=== PATIENT | male | born 1945 | race Caucasian/White ===

== ENCOUNTER 2018-10-23 17:54 | Observation (INO) ==
[2018-10-23] MEDS ORDERED: Sod Chloride 0.9% Inj 1,000 ML IV.SIG ONE (18:41)
[2018-10-23] MEDS ORDERED: Pantoprazole Inj 40 MG Vial IV.PUSH ONE (18:41)
[2018-10-23 18:42] LABS: Baso # (Auto) 0.1 th/mm3 (0.0-0.2); Baso % (Auto) 0.5 % (0.0-2.0); Eos # (Auto) 0.8 th/mm3 (0.0-0.4); Hematocrit 45.5 % (39.0-51.0); Hemoglobin 14.9 gm/dL (13.0-17.0); Lymph # (Auto) 2.9 th/mm3 (1.0-4.8); Lymph % (Auto) 21.2 % (9.0-44.0); Mean Corpuscular HGB Conc 32.8 % (32.0-36.0); Mean Corpuscular Hemoglobin 32.3 pg (27.0-34.0); Mean Corpuscular Volume 98.4 fL (80.0-100.0); Mean Platelet Volume 8.5 fL (7.0-11.0); Mono # (Auto) 1.2 th/mm3 (0.0-0.9); Mono % (Auto) 8.7 % (0.0-8.0); Neut # (Auto) 8.5 th/mm3 (1.8-7.7); Neut % (Auto) 63.6 % (16.0-70.0); Platelet Count 176 th/mm3 (150-450); Red Blood Count 4.63 mil/mm3 (4.50-5.90); White Blood Count 13.5 th/mm3 (4.0-11.0)
[2018-10-23 18:53] LABS: Chloride 102 meq/L (98-107); Potassium 3.6 meq/L (3.5-5.1); Sodium 138 meq/L (136-145)
--- NOTE | 2018-10-23 18:59 | ED ---
HPI General Chief complaint: Abdominal Pain Stated complaint: N/V/Mid Lower Abd Pain x3Days Time Seen by Provider: 10/23/18 18:15 History of Present Illness HPI narrative: 73 male here for evaluation of abdominal pain and coffee-ground emesis. Patient has no history of any medical problems, last colonoscopy was was a year ago and was normal. Over the last 10 days has been experiencing abdominal pain that he thought it was just a stomach virus, pain seems to be getting worse recently, in the right lower quadrant, 5, this morning he had one episode of coffee-ground emesis, he is also complaining of lightheadedness and fatigue since the vomiting. He has no diarrhea, last bowel movement was yesterday and was normal. No previous surgeries. Related Data Home Medications Medication Instructions Recorded Confirmed naproxen sodium [Aleve] 220 mg PO BID PRN 10/23/18 10/23/18 Allergies Allergy/AdvReac Type Severity Reaction Status Date / Time penicillin V Allergy Swelling Verified 10/23/18 18:01 of Lip/Tongue/Throat Review of Systems ROS: all other systems reviewed are negative [facility] Medical History Medical History H/O corticosteroid therapy (Acute) Right rotator cuff tear (Acute) Surgical History Surgical History History of ankle surgery (Acute) Social History Social History Substance History: No History of Abuse Second Hand Smoke Exposure: No Smoking Status: Never smoker How Often Do You Have a Drink Containing Alcohol: 2 to 4 times a month Recent Travel in [facility] within the Last 8 Weeks: No Recent Out of Country Travel within the Last 8 Weeks: No Immunization History Tetanus Immunization: Unsure Exam Narrative Exam Narrative: GENERAL: Alert oriented x3 no acute distress. SKIN: Focused skin assessment warm/dry. HEAD: Atraumatic. Normocephalic. EYES: Pupils equal and round. No scleral icterus. No injection or drainage. ENT: No nasal bleeding or discharge. Mucous membranes pink and moist. NECK: Trachea midline. No JVD. CARDIOVASCULAR: Regular rate and rhythm. No murmur appreciated. RESPIRATORY: No accessory muscle use. Clear to auscultation. Breath sounds equal bilaterally. GASTROINTESTINAL: Mild right lower quadrant tenderness, abdomen soft, non-tender , nondistended. Hepatic and splenic margins not palpable. MUSCULOSKELETAL: No obvious deformities. No clubbing. No cyanosis. No edema. NEUROLOGICAL: Awake and alert. No obvious cranial nerve deficits. Motor grossly within normal limits. Normal speech. PSYCHIATRIC: Appropriate mood and affect; insight and judgment normal. Procedures Hemaprompt Stool Procedural Steps Taken: specimen placed in appropriate test area Hemaprompt Stool Result: positive Course Initial Documented Vital Signs Temperature 98.6 F 10/23/18 17:57 Pulse Rate 105 H 10/23/18 17:57 Respiratory Rate 16 10/23/18 17:57 Blood Pressure 183/82 H 10/23/18 17:57 Pulse Oximetry 96 10/23/18 17:57 Last Documented Vital Signs Temperature 97.8 F 10/25/18 00:29 Pulse Rate 83 10/25/18 00:29 Respiratory Rate 18 10/25/18 00:29 Blood Pressure 115/53 L 10/25/18 00:29 Pulse Oximetry 94 L 10/25/18 00:29 Sign Out Sign Out Data: Patient Sign Out occurred on 10/23/18 at 19:43. Patient's care was discussed, and care was transferred from Ej Mccarthy MD to Arti Mosley MD. Sign Out Comment: 73 male here for evaluation of coffee-ground emesis this morning. He has been having abdominal pain on and off for the last 10 days that got worse recently. He has right lower quadrant tenderness on exam, he is tachycardic, Hemoccult positive, pending EKG and labs. Will sign out to Dr. Mosley next shift. Last updated by Ej Mccarthy MD at 10/23/18 19:07 Post-Handoff Eval: Accepted in transfer of care for follow-up of pending labs and admission for GI bleed Medical Decision Making MDM Narrative Medical decision making narrative: 73 male here for evaluation of coffee-ground emesis this morning. He has been having abdominal pain on and off for the last 10 days that got worse recently. He has right lower quadrant tenderness on exam , he is tachycardic, Hemoccult positive, pending EKG and labs. Will sign out to Dr. Mosley next shift. Accepted in transfer of care for follow-up of pending labs CT diagnostics for evaluation of upper GI bleed. Patient relates that he does drink 2 alcoholic beverages daily and takes Aleve daily as well as 81 mg aspirin daily. Patient states has not noticed any black or tarry stools last bowel movement was approximately a day ago. Patient did have episode of coffee-ground emesis for the first time today. Patient does complain of right lower quadrant abdominal pain and periumbilical pain. Patient denies any chest pain or shortness of breath. Patient has had some intermittent dizziness. CBC with automated differential is noted to have mild leukocytosis with normal range hemoglobin hematocrit and platelet count chemistries remarkable for elevated serum calcium otherwise values grossly normal range. Patient will be sent for CT abdomen pelvis with IV contrast. Patient has been administered maintenance IV fluids kept n.p.o. received Protonix 40 mg bolus Zofran and morphine sulfate 2 mg x1 dose for complaint of 7/10 abdominal pain. Rectal exam previously performed by Dr. Smith was positive for blood. Patient is aware of plan for at least observation admission. Discussed with Dr Beach for admission for GI bleed with h/o nsaid use alcohol use and CT with gastric mass Medical Screen Exam Complete: Yes Emergency Medical Condition: Yes Differential Diagnosis Differential Diagnosis: GI bleed, gastritis peptic ulcer disease also to consider right lower quadrant abdominal pain colitis diverticulitis appendicitis dehydration pancreatitis renal insufficiency coagulopathy [facility] Medical Records no prior visits Lab Data Lab results reviewed: Yes I reviewed the patient's lab results. Result diagrams: 10/24/18 18:09 10/24/18 06:05 Lab Results 10/23/18 10/23/18 10/23/18 Range/Units 18:25 18:25 18:25 CBC w Diff Auto diff final WBC 13.5 H (4.0-11.0) th/mm3 RBC 4.63 (4.50-5.90) mil/mm3 Hgb 14.9 (13.0-17.0) gm/dL Hct 45.5 (39.0-51.0) % MCV 98.4 (80.0-100.0) fL MCH 32.3 (27.0-34.0) pg MCHC 32.8 (32.0-36.0) % RDW 15.0 (11.6-17.2) % Plt Count 176 (150-450) th/mm3 MPV 8.5 (7.0-11.0) fL Neut % (Auto) 63.6 (16.0-70.0) % Lymph % (Auto) 21.2 (9.0-44.0) % Stevens % (Auto) 8.7 H (0.0-8.0) % Eos % (Auto) 6.0 H (0.0-4.0) % Baso % (Auto) 0.5 (0.0-2.0) % Neut # (Auto) 8.5 H (1.8-7.7) th/mm3 Lymph # (Auto) 2.9 (1.0-4.8) th/mm3 Stevens # (Auto) 1.2 H (0.0-0.9) th/mm3 Eos # (Auto) 0.8 H (0.0-0.4) th/mm3 Baso # (Auto) 0.1 (0.0-0.2) th/mm3 WBC Differential . Differential Comment . PT 11.8 H (9.8-11.6) sec INR 1.2 Ratio APTT 25.7 (23.4-31.7) sec Sodium 138 (136-145) meq/L Potassium 3.6 (3.5-5.1) meq/L Chloride 102 (98-107) meq/L Carbon Dioxide 30.3 (21.0-32.0) meq/L Anion Gap 6 (5-15) meq/L BUN 15 (7-18) mg/dL Creatinine 0.76 (0.60-1.30) mg/dL Estimated GFR Greater than 89 (>89) mL/min POC Glucose (68-110) mg/dl Random Glucose 95 (74-106) mg/dL Calcium 10.5 H (8.5-10.1) mg/dL Magnesium 1.7 (1.5-2.5) mg/dL Total Bilirubin 1.0 (0.2-1.0) mg/dL AST 37 (15-37) U/L ALT 23 (12-78) U/L Alkaline Phosphatase 95 (45-117) U/L Total Protein 6.6 (6.4-8.2) g/dL Albumin 2.9 L (3.4-5.0) g/dL Lipase 99 (73-393) U/L Urine Color (Yellw/Straw) Urine Clarity (Clear) Urine pH (5.0-8.5) Ur Specific [place] (1.002-1.035) Urine Protein (Neg-Trace) mg/dL Urine Glucose (UA) (Negative) mg/dL Urine Ketones (Negative) mg/dL Urine Occult Blood (Negative) Urine Nitrate (Negative) Urine Bilirubin (Negative) Urine Urobilinogen (Less than 2) mg/dL Ur Leukocyte Esterase (Negative) Urine WBC (0-5) /hpf Amorphous Sediment (None) /hpf Micro UA Comment Ur Microscopic Review Urine Culture Comments Blood Type Blood Type Recheck Antibody Screen 10/23/18 10/23/18 10/24/18 Range/Units 18:50 21:55 00:05 CBC w Diff WBC (4.0-11.0) th/mm3 RBC (4.50-5.90) mil/mm3 Hgb 14.6 (13.0-17.0) gm/dL Hct 43.1 (39.0-51.0) % MCV (80.0-100.0) fL MCH (27.0-34.0) pg MCHC (32.0-36.0) % RDW (11.6-17.2) % Plt Count (150-450) th/mm3 MPV (7.0-11.0) fL Neut % (Auto) (16.0-70.0) % Lymph % (Auto) (9.0-44.0) % Stevens % (Auto) (0.0-8.0) % Eos % (Auto) (0.0-4.0) % Baso % (Auto) (0.0-2.0) % Neut # (Auto) (1.8-7.7) th/mm3 Lymph # (Auto) (1.0-4.8) th/mm3 Stevens # (Auto) (0.0-0.9) th/mm3 Eos # (Auto) (0.0-0.4) th/mm3 Baso # (Auto) (0.0-0.2) th/mm3 WBC Differential Differential Comment PT (9.8-11.6) sec INR Ratio APTT (23.4-31.7) sec Sodium (136-145) meq/L Potassium (3.5-5.1) meq/L Chloride (98-107) meq/L Carbon Dioxide (21.0-32.0) meq/L Anion Gap (5-15) meq/L BUN (7-18) mg/dL Creatinine (0.60-1.30) mg/dL Estimated GFR (>89) mL/min POC Glucose (68-110) mg/dl Random Glucose (74-106) mg/dL Calcium (8.5-10.1) mg/dL Magnesium (1.5-2.5) mg/dL Total Bilirubin (0.2-1.0) mg/dL AST (15-37) U/L ALT (12-78) U/L Alkaline Phosphatase (45-117) U/L Total Protein (6.4-8.2) g/dL Albumin (3.4-5.0) g/dL Lipase (73-393) U/L Urine Color Yellow (Yellw/Straw) Urine Clarity Slightly cloudy (Clear) Urine pH 8.0 (5.0-8.5) Ur Specific [place] 1.010 (1.002-1.035) Urine Protein Negative (Neg-Trace) mg/dL Urine Glucose (UA) Negative (Negative) mg/dL Urine Ketones Negative (Negative) mg/dL Urine Occult Blood Negative (Negative) Urine Nitrate Negative (Negative) Urine Bilirubin Negative (Negative) Urine Urobilinogen 0.2 (Less than 2) mg/dL Ur Leukocyte Esterase Negative (Negative) Urine WBC 0-5 (0-5) /hpf Amorphous Sediment Moderate H (None) /hpf Micro UA Comment Culture not ind Ur Microscopic Review Microscopic reviewed Urine Culture Comments Culture not ind Blood Type A Positive Blood Type Recheck Required Antibody Screen Negative 10/24/18 10/24/18 10/24/18 Range/Units 06:05 06:05 13:14 CBC w Diff Auto diff final WBC 11.1 H (4.0-11.0) th/mm3 RBC 3.97 L (4.50-5.90) mil/mm3 Hgb 13.0 13.7 (13.0-17.0) gm/dL Hct 39.3 41.0 (39.0-51.0) % MCV 99.0 (80.0-100.0) fL MCH 32.8 (27.0-34.0) pg MCHC 33.1 (32.0-36.0) % RDW 14.9 (11.6-17.2) % Plt Count 139 L (150-450) th/mm3 MPV 8.2 (7.0-11.0) fL Neut % (Auto) 61.4 (16.0-70.0) % Lymph % (Auto) 21.3 (9.0-44.0) % Stevens % (Auto) 8.6 H (0.0-8.0) % Eos % (Auto) 8.2 H (0.0-4.0) % Baso % (Auto) 0.5 (0.0-2.0) % Neut # (Auto) 6.7 (1.8-7.7) th/mm3 Lymph # (Auto) 2.4 (1.0-4.8) th/mm3 Stevens # (Auto) 1.0 H (0.0-0.9) th/mm3 Eos # (Auto) 0.9 H (0.0-0.4) th/mm3 Baso # (Auto) 0.1 (0.0-0.2) th/mm3 WBC Differential . Differential Comment . PT (9.8-11.6) sec INR Ratio APTT (23.4-31.7) sec Sodium 142 (136-145) meq/L Potassium 3.9 (3.5-5.1) meq/L Chloride 107 (98-107) meq/L Carbon Dioxide 29.7 (21.0-32.0) meq/L Anion Gap 5 (5-15) meq/L BUN 16 (7-18) mg/dL Creatinine 0.74 (0.60-1.30) mg/dL Estimated GFR Greater than 89 (>89) mL/min POC Glucose (68-110) mg/dl Random Glucose 89 (74-106) mg/dL Calcium 9.2 D (8.5-10.1) mg/dL Magnesium (1.5-2.5) mg/dL Total Bilirubin 0.9 (0.2-1.0) mg/dL AST 26 (15-37) U/L ALT 18 (12-78) U/L Alkaline Phosphatase 78 (45-117) U/L Total Protein 5.6 L D (6.4-8.2) g/dL Albumin 2.6 L (3.4-5.0) g/dL Lipase (73-393) U/L Urine Color (Yellw/Straw) Urine Clarity (Clear) Urine pH (5.0-8.5) Ur Specific [place] (1.002-1.035) Urine Protein (Neg-Trace) mg/dL Urine Glucose (UA) (Negative) mg/dL Urine Ketones (Negative) mg/dL Urine Occult Blood (Negative) Urine Nitrate (Negative) Urine Bilirubin (Negative) Urine Urobilinogen (Less than 2) mg/dL Ur Leukocyte Esterase (Negative) Urine WBC (0-5) /hpf Amorphous Sediment (None) /hpf Micro UA Comment Ur Microscopic Review Urine Culture Comments Blood Type Blood Type Recheck Antibody Screen 10/24/18 10/24/18 Range/Units 18:09 20:04 CBC w Diff WBC (4.0-11.0) th/mm3 RBC (4.50-5.90) mil/mm3 Hgb 13.6 (13.0-17.0) gm/dL Hct 40.6 (39.0-51.0) % MCV (80.0-100.0) fL MCH (27.0-34.0) pg MCHC (32.0-36.0) % RDW (11.6-17.2) % Plt Count (150-450) th/mm3 MPV (7.0-11.0) fL Neut % (Auto) (16.0-70.0) % Lymph % (Auto) (9.0-44.0) % Stevens % (Auto) (0.0-8.0) % Eos % (Auto) (0.0-4.0) % Baso % (Auto) (0.0-2.0) % Neut # (Auto) (1.8-7.7) th/mm3 Lymph # (Auto) (1.0-4.8) th/mm3 Stevens # (Auto) (0.0-0.9) th/mm3 Eos # (Auto) (0.0-0.4) th/mm3 Baso # (Auto) (0.0-0.2) th/mm3 WBC Differential Differential Comment PT (9.8-11.6) sec INR Ratio APTT (23.4-31.7) sec Sodium (136-145) meq/L Potassium (3.5-5.1) meq/L Chloride (98-107) meq/L Carbon Dioxide (21.0-32.0) meq/L Anion Gap (5-15) meq/L BUN (7-18) mg/dL Creatinine (0.60-1.30) mg/dL Estimated GFR (>89) mL/min POC Glucose 144 H (68-110) mg/dl Random Glucose (74-106) mg/dL Calcium (8.5-10.1) mg/dL Magnesium (1.5-2.5) mg/dL Total Bilirubin (0.2-1.0) mg/dL AST (15-37) U/L ALT (12-78) U/L Alkaline Phosphatase (45-117) U/L Total Protein (6.4-8.2) g/dL Albumin (3.4-5.0) g/dL Lipase (73-393) U/L Urine Color (Yellw/Straw) Urine Clarity (Clear) Urine pH (5.0-8.5) Ur Specific [place] (1.002-1.035) Urine Protein (Neg-Trace) mg/dL Urine Glucose (UA) (Negative) mg/dL Urine Ketones (Negative) mg/dL Urine Occult Blood (Negative) Urine Nitrate (Negative) Urine Bilirubin (Negative) Urine Urobilinogen (Less than 2) mg/dL Ur Leukocyte Esterase (Negative) Urine WBC (0-5) /hpf Amorphous Sediment (None) /hpf Micro UA Comment Ur Microscopic Review Urine Culture Comments Blood Type Blood Type Recheck Antibody Screen Imaging Data Radiologist's impression: Chest X-Ray 10/23/18 18:41 CONCLUSION: No acute cardiopulmonary disease. Abdomen/Pelvis CT 10/23/18 19:46 CONCLUSION: 1. Questionable mass arising from the wall of the gastric fundus. Upper endoscopy would be helpful for confirmation of this questionable mass and possible biopsy. 2. Uncomplicated colonic diverticulosis. 3. Mild diffuse fatty infiltration liver. 4. Cholelithiasis. 5. 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 Minimally prominent prostate with central calcification. 7. Degenerative changes and mild scoliosis of the thoracolumbar spine. ECG Data EKG Prior to Arrival: No Attestation: I personally reviewed and interpreted this ECG as follows: (EKG: Sinus rhythm with rate of [address] elevation or injury pattern positive PACs left anterior fascicular block) Discharge Plan Discharge Disposition Patient Disposition: ED Admit(ED Internal Use Only) Discharge Condition Condition: Stable Discharge Order Discharge Orders: ED Use Only Admit Order (Routine); Ordered 10/23/18 Ordered By: Arti Mosley Discharge Details Diagnosis: Gastric mass, Gastritis, UGIB (upper gastrointestinal bleed) Physicians Team ED Provider: Arti Mosley Primary Care Provider: Primary Care Liliane Gutierrez Attending Provider: Michelle Sam Other Providers: Amador Falk Status ED Status: Left Department Discharge Information Discharge Date/Time: 10/24/18 11:59
--- NOTE | 2018-10-23 19:28 | XR ---
EXAM DATE: 10/23/2018 7:23 PM EST AGE/SEX: 73 years / Male INDICATIONS: Nausea and vomiting. CLINICAL DATA: This is the patient's initial encounter. Patient reports that signs and symptoms have been present for 2 days and indicates a pain score of 3/10. MEDICAL/SURGICAL HISTORY: None. . COMPARISON: No prior exams available for comparison. FINDINGS: A single AP view of the chest demonstrates the lungs to be symmetrically aerated without evidence of mass, infiltrate or effusion. The cardiomediastinal contours are unremarkable. Osseous structures a re intact. CONCLUSION: No acute cardiopulmonary disease. Electronically signed by: Stuart Bundy MD Board Certified Radiologist 10/23/2018 7:26 PM EST
[2018-10-23 19:30] LABS: Bilirubin,Urine Negative (Negative); Clarity,Urine Slightly Cloudy (Clear); Color,Urine Yellow (Yellw/Straw); Glucose,Urine (UA) Negative (Negative); Leukocyte Esterase,Urine Negative (Negative); Nitrite,Urine Negative (Negative); Urobilinogen,Urine 0.2 mg/dL (Less than 2)
[2018-10-23 19:31] LABS: Alanine Aminotransferase 23 U/L (12-78); Albumin 2.9 g/dL (3.4-5.0); Alkaline Phosphatase 95 U/L (45-117); Anion Gap 6 meq/L (5-15); Aspartate Aminotransferase 37 U/L (15-37); Blood Urea Nitrogen 15 mg/dL (7-18); Calcium 10.5 mg/dL (8.5-10.1); Carbon Dioxide 30.3 meq/L (21.0-32.0); Glomerular Filtration Rate Greater Than 89 mL/min (>89); Glucose,Random 95 mg/dL (74-106); Lipase 99 U/L (73-393); Magnesium 1.7 mg/dL (1.5-2.5); Total Protein 6.6 g/dL (6.4-8.2)
[2018-10-23 19:44] LABS: Amorphous Sediment,Urine Moderate /hpf; WBC,Urine 0-5 /hpf (0-5)
[2018-10-23] MEDS ORDERED: Morphine Inj 4 MG/ML Vial IV.PUSH ONE (19:46)
[2018-10-23 20:09] LABS: Activated Partial Thrombo Time 25.7 sec (23.4-31.7); INR 1.2 Ratio; Prothrombin Time 11.8 sec (9.8-11.6)
--- NOTE | 2018-10-23 21:06 | CT ---
EXAM DATE: 10/23/2018 8:57 PM EST AGE/SEX: 73 years / Male INDICATIONS: Mid to low abdominal pain, and coffee ground emesis. CLINICAL DATA: This is the patient's initial encounter. Patient reports that signs and symptoms have been present for 3 days and indicates a pain score of 5/10. MEDICAL/SURGICAL HISTORY: None. . Ankle surgery. ORAL CONTRAST: No oral contrast ingested. RADIATION DOSE: 22.08 CTDI (mGy) COMPARISON: No prior exams available for comparison. TECHNIQUE: Multiple contiguous axial images were obtained through the abdomen and pelvis following b olus infusion of 95 ml Omnipaque 350 (iohexol) nonionic water-soluble contrast as a single exam dos e. No oral contrast ingested. Using automated exposure control and adjustment of the mA and/or kV ac cording to patient size, radiation dose was kept as low as reasonably achievable to obtain optimal di agnostic quality images. DICOM format image data is available electronically for review and comparis on. FINDINGS: Lower Lungs: The visualized lower lungs are clear. Liver: Scattered punctate calcifications are noted within the liver parenchyma consistent with granul omatous disease. Mild diffuse fatty infiltration is noted. No focal hepatic mass is noted. There is n o dilation of the biliary tree. Tiny calcified gallstones are noted within the gallbladder. Spleen: Scattered punctate calcification are noted consistent with granulomatous disease. Pancreas: Unremarkable without mass or calcification. Kidneys: Normal in size and shape. No evidence of mass or hydronephrosis. Adrenal Glands: Unremarkable. Aorta: The aorta and proximal iliac vessels are grossly unremarkable without aneurysmal dilation. Bowel/Mesentery: There is questionable mass arising from the wall of the gastric fundus. Upper endos copy would be helpful for confirmation of this questionable mass and possible biopsy. Uncomplicated c olonic diverticulosis is noted. No acute diverticulitis is noted. Abdominal Wall: Intact. Retroperitoneum: No evidence of adenopathy in the retrocrural, para-aortic, or deep pelvic regions. Bladder: Contours are smooth. Reproductive Organs: The prostate gland is minimally prominent and contains central calcification. Inguinal: The inguinal region is unremarkable without evidence of adenopathy. Bony Structures: Degenerative changes and mild scoliosis of the thoracolumbar spine are noted. CONCLUSION: 1. Questionable mass arising from the wall of the gastric fundus. Upper endoscopy would be helpful f or confirmation of this questionable mass and possible biopsy. 2. Uncomplicated colonic diverticulosis. 3. Mild diffuse fatty infiltration liver. 4. Cholelithiasis. 5. 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 Minimally prominent prostate with central calcification. 7. Degenerative changes and mild scoliosis of the thoracolumbar spine. Electronically signed by: Mak Mojica MD Board Certified Radiologist 10/23/2018 9:05 PM EST
[2018-10-23] MEDS ORDERED: Haloperidol Inj 5 MG/ML Ampul IV.PUSH PRN (21:48)
[2018-10-23] MEDS ORDERED: LORazepam 1 MG Tablet PO PRN (21:48)
[2018-10-24 00:14] LABS: Hematocrit 43.1 % (39.0-51.0); Hemoglobin 14.6 gm/dL (13.0-17.0)
[2018-10-24 06:30] LABS: Baso # (Auto) 0.1 th/mm3 (0.0-0.2); Baso % (Auto) 0.5 % (0.0-2.0); Eos # (Auto) 0.9 th/mm3 (0.0-0.4); Eos % (Auto) 8.2 % (0.0-4.0); Hematocrit 39.3 % (39.0-51.0); Lymph # (Auto) 2.4 th/mm3 (1.0-4.8); Lymph % (Auto) 21.3 % (9.0-44.0); Mean Corpuscular HGB Conc 33.1 % (32.0-36.0); Mean Corpuscular Hemoglobin 32.8 pg (27.0-34.0); Mean Platelet Volume 8.2 fL (7.0-11.0); Mono % (Auto) 8.6 % (0.0-8.0); Neut # (Auto) 6.7 th/mm3 (1.8-7.7); Neut % (Auto) 61.4 % (16.0-70.0); Platelet Count 139 th/mm3 (150-450); Red Blood Count 3.97 mil/mm3 (4.50-5.90); Red Cell Distribution Width 14.9 % (11.6-17.2); White Blood Count 11.1 th/mm3 (4.0-11.0)
[2018-10-24 06:36] LABS: Chloride 107 meq/L (98-107); Potassium 3.9 meq/L (3.5-5.1); Sodium 142 meq/L (136-145)
[2018-10-24 06:46] LABS: Alanine Aminotransferase 18 U/L (12-78); Albumin 2.6 g/dL (3.4-5.0); Anion Gap 5 meq/L (5-15); Aspartate Aminotransferase 26 U/L (15-37); Blood Urea Nitrogen 16 mg/dL (7-18); Calcium 9.2 mg/dL (8.5-10.1); Carbon Dioxide 29.7 meq/L (21.0-32.0); Glomerular Filtration Rate Greater Than 89 mL/min (>89); Glucose,Random 89 mg/dL (74-106)
[2018-10-24 06:55] LABS: Alkaline Phosphatase 78 U/L (45-117); Total Protein 5.6 g/dL (6.4-8.2)
[2018-10-24] MEDS: Pantoprazole Inj 40 MG Vial IV.PUSH SCH ×2 (08:54→21:09)
--- NOTE | 2018-10-24 12:38 | P.HPIM ---
History of Present Illness Service: Hospitalist Primary Care Physician: No Primary Care Physician Chief Complaint: Upper GI bleed, abdominal pain History of Present Illness: Mr. Marley is a pleasant 73-year-old male with no significant medical history who presents to the emergency department on 10/23/2018 due to upper abdominal pain, coffee-ground emesis. Patient has not been feeling well for last several days. He also reports abdominal pain for about a week. On 10/23/2018, he had an episode of nausea vomiting and he vomited coffee-ground materials. He denies any bright red blood in the vomitus. He denies any diarrhea constipation, hematochezia or melena. Denies any significant weight loss. No chest pain, shortness of breath , fever or chills. Denies any changes in bladder habits. Past medical history: No significant past medical history. Patient takes naproxen as needed for pain Past surgical history: Rotator cuff surgery. Social history: Lifelong non-smoker, drinks 2 alcoholic drinks a day. Family history: Father with diabetes mellitus. Mother had breast cancer and currently 99 years old. Review of Systems Review of Systems: all other systems reviewed are negative [facility] Medical History Medical History H/O corticosteroid therapy (Acute) Right rotator cuff tear (Acute) Surgical History Surgical History History of ankle surgery (Acute) Social History Social History Substance History: No History of Abuse Smoking Status: Never smoker How Often Do You Have a Drink Containing Alcohol: 2 to 4 times a month Recent Travel in [facility] within the Last 8 Weeks: No Recent Out of Country Travel within the Last 8 Weeks: No Immunization History Tetanus Immunization: Unsure Medications and Allergies Allergies Allergy/AdvReac Type Severity Reaction Status Date / Time penicillin V Allergy Swelling Verified 10/23/18 18:01 of Lip/Tongue/Throat Home Medications Medication Instructions Recorded Confirmed Type naproxen sodium [Aleve] 220 mg PO BID PRN 10/23/18 10/23/18 History Active Medications: Active Medications Flumazenil (Romazicon Inj) 0.2 mg IV.PUSH Q1M PRN PRN Reason: OVERSEDATION Haloperidol Lactate (Haldol Inj) 1 mg IV.PUSH Q15M PRN PRN Reason: for severe agitation Lorazepam (Ativan) 1 mg PO Q4H PRN PRN Reason: for CIWA 8-10 Lorazepam (Ativan) 2 mg PO Q2H PRN PRN Reason: for CIWA 11-14 Lorazepam (Ativan Inj) 2 mg IV.PUSH Q2H PRN PRN Reason: for CIWA 11-14 Lorazepam (Ativan Inj) 2 mg IV.PUSH Q1H PRN PRN Reason: for CIWA 15-20 Lorazepam (Ativan Inj) 2 mg IV.PUSH Q15M PRN PRN Reason: for CIWA > 20 Lorazepam (Ativan Inj) 1 mg IV.PUSH Q4H PRN PRN Reason: for CIWA 8-10 Ondansetron HCl (Zofran Inj) 4 mg IV.PUSH Q6H PRN PRN Reason: NAUSEA OR VOMITING Last Admin: 10/24/18 08:54 Dose: 4 mg Pantoprazole Sodium (Protonix Inj) 40 mg IV.PUSH BID DENY Last Admin: 10/24/18 08:54 Dose: 40 mg Sodium Chloride (Ns Flush) 2 ml IV.FLUSH BID DENY Sodium Chloride (Ns Flush) 2 ml IV.FLUSH PRN PRN PRN Reason: FLUSH AFTER USING IV ACCESS Last Admin: 10/24/18 08:55 Dose: 2 ml Physical Exam Vital signs: Vital Signs 10/23/18 17:57 10/23/18 18:01 10/23/18 22:41 Temperature 98.6 F 98.3 F Pulse Rate 105 H 89 Respiratory Rate 16 16 Blood Pressure 183/82 H 151/71 H Pulse Oximetry 96 99 98 10/24/18 00:15 10/24/18 04:26 10/24/18 06:51 Temperature 98.0 F 97.9 F Pulse Rate 81 81 84 Respiratory Rate 16 16 18 Blood Pressure 148/74 H 144/81 H 128/71 Pulse Oximetry 10/24/18 07:15 Temperature 97.8 F Pulse Rate 85 Respiratory Rate 16 Blood Pressure 127/69 Pulse Oximetry 100 Intake & Output 10/23/18 10/24/18 10/24/18 18:59 06:59 18:59 Intake Total 1000 / 1000 Output Total 250 / 250 400 / 400 Balance -250 / -250 600 / 600 Weight 109.2 kg Intake: IV 1000 / 1000 NS Inj 1,000 ML @ Wide Open IV. 1000 / 1000 SIG BOLUS ONE Rx#:[id number] Output: Urine 250 / 250 400 / 400 Narrative: GENERAL: This is a well-nourished, well-developed patient, in no apparent distress. SKIN: No rashes, ecchymoses or lesions. Warm and dry. HEAD: Atraumatic. Normocephalic. No temporal or scalp tenderness. EYES: Pupils equal round and reactive. No injection or drainage. ENT: Nose without bleeding, purulent drainage or septal hematoma. Airway patent. NECK: Trachea midline. No lymphadenopathy. Supple, nontender, no meningeal signs. CARDIOVASCULAR: Regular rate and rhythm without murmurs, gallops, or rubs. No JVD. RESPIRATORY: Clear to auscultation. Breath sounds equal bilaterally. No wheezes , rales, or rhonchi. GASTROINTESTINAL: Abdomen soft, mild tenderness on palpation over right upper abdomen., nondistended. No guarding. MUSCULOSKELETAL: Extremities without clubbing, cyanosis, or edema. NEUROLOGICAL: Awake and alert. Cranial nerves II through XII intact. No focal neurological deficits. Normal speech. Results Labs CBC & Chem 7: 10/24/18 06:05 10/24/18 06:05 Imaging Impressions Chest X-Ray 10/23/18 18:41 CONCLUSION: No acute cardiopulmonary disease. Abdomen/Pelvis CT 10/23/18 19:46 CONCLUSION: 1. Questionable mass arising from the wall of the gastric fundus. Upper endoscopy would be helpful for confirmation of this questionable mass and possible biopsy. 2. Uncomplicated colonic diverticulosis. 3. Mild diffuse fatty infiltration liver. 4. Cholelithiasis. 5. 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 Minimally prominent prostate with central calcification. 7. Degenerative changes and mild scoliosis of the thoracolumbar spine. Caprini VTE Risk Assessment Caprini VTE Risk Assessment: No/Low Risk (score <= 1) Caprini Risk Assessment Model: Point Value = 1 Point Value = 2 Point Value = 3 Point Value = 5 Age 41-60 Minor surgery BMI > 25 kg/m2 Swollen legs Varicose veins or History of unexplained or recurrent spontaneous Oral contraceptives or hormone replacement Sepsis (< 1 month) Serious lung disease, including pneumonia (< 1 month) Abnormal pulmonary function Acute myocardial infarction Congestive heart failure (< 1 month) History of inflammatory bowel disease Medical patient at bed rest Age 61-74 Arthroscopic surgery Major open surgery (> 45 min) Laparoscopic surgery (> 45 min) Malignancy Confined to bed (> 72 hours) Immobilizing plaster cast Central venous access Age >= 75 History of VTE Family history of VTE Factor V Leiden Prothrombin [id number] Lupus anticoagulant Anticardiolipin antibodies Elevated serum homocysteine Heparin-induced thrombocytopenia Other congenital or acquired thrombophilia Stroke (< 1 month) Elective arthroplasty Hip, pelvis, or leg fracture Acute spinal cord injury (< 1 month) Prophylaxis Regimen: Total Risk Factor Score Risk Level Prophylaxis Regimen 0-1 Low Early ambulation 2 Moderate Order ONE of the following: *Sequential Compression Device (SCD) *Heparin 5000 units SQ BID 3-4 Higher Order ONE of the following medications: *Heparin 5000 units SQ TID *Enoxaparin/Lovenox 40 mg SQ daily (WT < 150 kg, CrCl > 30 mL/min) *Enoxaparin/Lovenox 30 mg SQ daily (WT < 150 kg, CrCl > 10-29 mL/min) *Enoxaparin/Lovenox 30 mg SQ BID (WT < 150 kg, CrCl > 30 mL/min) AND/OR *Sequential Compression Device (SCD) 5 or more Highest Order ONE of the following medications: *Heparin 5000 units SQ TID (Preferred with Epidurals) *Enoxaparin/Lovenox 40 mg SQ daily (WT < 150 kg, CrCl > 30 mL/min) *Enoxaparin/Lovenox 30 mg SQ daily (WT < 150 kg, CrCl > 10-29 mL/min) *Enoxaparin/Lovenox 30 mg SQ BID (WT < 150 kg, CrCl > 30 mL/min) AND *Sequential Compression Device (SCD) Assessment and Plan Plan Mr. Marley is a pleasant 73-year-old male with no significant past medical history who presents to the emergency department due to 1 week long abdominal pain and 1 day duration of coffee-ground emesis. Patient denies any weight loss. Acute abdominal pain Upper GI bleed Probable Gastric Mass CT abdomen pelvis shows possible gastric mass. Gastroenterology consultation pending. Patient is currently n.p.o for possible EGD. Continue Protonix IV 40 mg twice daily. Avoid NSAIDs. Hemoglobin 13.0 this morning. Will transfuse if hemoglobin drops significantly. Patient is from [place]. We discussed at length regarding future management if gastric mass is confirmed on EGD. We may consult hematology oncology here or patient can follow-up with an oncologist in [place]. Full code. SCDs. Pharmacological DVT prophylaxis contraindicated in the setting of upper GI bleed.
[2018-10-24 13:25] LABS: Hemoglobin 13.7 gm/dL (13.0-17.0)
[2018-10-24] MEDS: Sod Chloride 0.9% Inj 1,000 ML IV.CONT SCH (14:25)
--- NOTE | 2018-10-24 16:39 | ECG ---
Date Performed: 10/23/2018 Time Performed: 19:12:04 PTAGE: 73 years EKG: Sinus rhythm with frequent premature atrial contractions. LEFT ANTERIOR FASCICULAR BLOCK Right bundle branch bloc k. ABNORMAL ECG NO PREVIOUS TRACING DOCTOR: Gallo Srivastava Interpretating Date/Time 10/24/2018 16:38:02
[2018-10-24] MEDS ORDERED: Lidocaine PF 1% Inj 5 ML Syringe OTHER ONE (17:15)
--- NOTE | 2018-10-24 17:38 | GIPROC ---
[facility] [address] [place] [address], [id number] EGD PROCEDURE REPORT EXAM DATE: 10/24/2018 PATIENT NAME: Carlos Manuel Marley MR #: [id number] BIRTHDATE: 1945 ATTENDING: Amador Falk MD ORDER #: [id number] CUSTOM DECORATING CONSULTANT: Eamon Smith and Kelley Krishnamurthy STATUS: inpatient INDICATIONS: The patient is a 73 yr old male here for an EGD due to acute post hemorrhagic anemia PROCEDURE PERFORMED: EGD w/ biopsy MEDICATIONS: None and Per Anesthesia. TOPICAL ANESTHETIC: CONSENT: The patient understands the risks and benefits of the procedure and understands that these risks include, but are not limited to: sedation, allergic reaction, infection, perforation and/or bleeding. Alternative means of evaluation and treatment include, among others: physical exam, x-rays, and/or surgical intervention. The patient elects to proceed with this endoscopic procedure. medical equipment was checked for proper function. Hand hygiene and appropriate measures for infection prevention was taken. After the risks, benefits and alternatives of the procedure were thoroughly explained, Informed consent was verified, confirmed and timeout was successfully executed by the treatment team. The patient was anesthetized with topical anesthesia and the NN LABSax [id number] endoscope was introduced through the mouth and advanced to the second portion of the duodenum. Retroflexed views revealed no abnormalities The gastroscope was then slowly withdrawn and removed. ESOPHAGUS: There was LA Class A esophagitis noted. Multiple biopsies were performed using cold forceps. Sample sent for histology. STOMACH: There was erythematous moderate and erosive gastritis in the gastric antrum. A biopsy was performed using cold forceps. Sample sent for histology. DUODENUM: A single non-bleeding, deep and clean-based ulcer ranging between 5-9mm in size with surrounding edema was found in the duodenal bulb. ADVERSE EVENTS: There were no complications. IMPRESSIONS: 1. There was LA Class A esophagitis noted; multiple biopsies were performed 2. There was erythematous gastritis in the gastric antrum; biopsy was performed 3. Single ulcer ranging between 5-9mm in size was found in the duodenal bulb 4. Retroflexed views revealed no abnormalities RECOMMENDATIONS: 1. Await biopsy results. Biopsy results will not be ready for 7-10 days. If you don't hear from us in two weeks, call our office for biopsy results. 2. Anti-reflux regimen 3. Continue PPI 4. Avoid NSAIDS PATIENT CONDITION: stable DISPOSITION: Inpatient REPEAT EXAM: Return 1 year EGD pending biopsy results Amador Falk MD eSigned: Amador Falk MD 10/24/2018 5:37 PM cc: PATIENT NAME: Carlos Manuel Marley MR#: [id number]
--- NOTE | 2018-10-24 17:44 | MB ---
cc: Amador Falk MD,Amador Chow MD DATE: 10/24/2018 This is a patient of Dr. Manpreet Sam. REASON FOR CONSULTATION: Melena, hematemesis, CT scan showing a possible gastric mass. HISTORY OF PRESENT ILLNESS: Mr. Marley is a 73-year-old gentleman with no significant past medical history, basically presents with upper abdominal discomfort and coffee-grounds emesis. The patient states he has not been feeling well for about a week. He says yesterday he had an episode of nausea, vomiting, and his family thought he had some coffee-grounds material in it. He states he has not had any bleeding from his stools. He has not seen any moises blood. He states he has not had any issues with the stomach in the past. PAST MEDICAL HISTORY: Rotator cuff tear, corticosteroid therapy. SURGICAL HISTORY: Ankle surgery. No previous EGD, colonoscopy. SOCIAL HISTORY: The patient drinks occasionally. No tobacco reported. ALLERGIES: PENICILLIN. MEDICINES ON ADMISSION: 1. Naprosyn. 2. Haldol. 3. Lorazepam. 4. Pantoprazole. PHYSICAL EXAMINATION: GENERAL: A well-nourished man in no apparent distress. VITAL SIGNS: Stable. HEAD AND NECK: Anicteric sclerae. LUNGS: Bilateral air entry with rales. ABDOMEN: Soft, nontender. No hepatosplenomegaly. Bowel sounds are present. CENTRAL NERVOUS SYSTEM: Nonfocal. RECTAL: Deferred at this time. LABORATORY DATA: Hemoglobin of 13, creatinine 0.74. CT of the abdomen and pelvis: There was a questionable mass in the wall of the gastric fundus, diverticulosis, fatty infiltration gallstones, granulomatous disease in the liver and the spleen, prostate enlargement. IMPRESSION: Gastrointestinal bleeding, possible gastric mass. RECOMMENDATIONS: EGD planned for later today, n.p.o. at this time, continue Protonix. Hold NSAIDs. Monitor labs. Further recommendations to follow after the endoscopy. Amador Falk MD HZ/presley , 04:46 PM , 04:52 PM
[2018-10-24 18:35] LABS: Hematocrit 40.6 % (39.0-51.0); Hemoglobin 13.6 gm/dL (13.0-17.0)
[2018-10-25] MEDS: Sod Chloride 0.9% Inj 1,000 ML IV.CONT SCH (05:13)
--- NOTE | 2018-10-25 06:50 | ECG ---
Date Performed: 10/24/2018 Time Performed: 23:09:44 PTAGE: 73 years EKG: Sinus rhythm RIGHT BUNDLE BRANCH BLOCK LEFT ANTERIOR FASCICULAR BLOCK ABNORMAL ECG Compared to prior electrocardi ogram, PACs are no longer present. PREVIOUS TRACING : 10/23/2018 19.12 DOCTOR: Alonzo Davis Interpretating Date/Time 10/25/2018 06:49:05
[2018-10-25] MEDS: Pantoprazole Inj 40 MG Vial IV.PUSH SCH (09:50)
--- NOTE | 2018-10-25 09:56 | P.PNIM ---
Subjective Interval history: Follow up for coffee ground emesis. Patient is currently doing well. No CP, SOB, fever, chills. EGD did not show any gastric mass. Small duodenal ulcer was identified. Physical Exam Vital signs: Vital Signs 10/24/18 12:37 10/24/18 17:42 10/24/18 18:00 Temperature 97.7 F 98.9 F Pulse Rate 87 82 80 Respiratory Rate 18 14 14 Blood Pressure 134/72 120/49 L 112/49 L Pulse Oximetry 97 95 95 10/24/18 20:00 10/25/18 00:29 Temperature 97.8 F 97.8 F Pulse Rate 87 83 Respiratory Rate 18 18 Blood Pressure 135/72 115/53 L Pulse Oximetry 96 94 L Intake & Output 10/24/18 10/25/18 10/25/18 18:59 06:59 18:59 Intake Total 200 / 200 2480 / 2480 Balance 200 / 200 2480 / 2480 Weight 109.2 kg Intake: IV 1000 / 1000 NS Inj 1,000 ML @ 84 mls/hr IV. 1000 / 1000 CONT .[id number] DENY Rx#: [id number] Oral 0 / 0 Oral Supplement 480 / 480 Anesthesia Amount 200 / 200 Other 1000 / 1000 Other: Other Intake Source Saline Solution # Voids 2 Narrative: GENERAL: Alert, NAD. SKIN: Warm and dry. HEAD: Normocephalic. EYES: No scleral icterus. No injection or drainage. NECK: Supple, trachea midline. No JVD or lymphadenopathy. CARDIOVASCULAR: Regular rate and rhythm without murmurs, gallops, or rubs. RESPIRATORY: Breath sounds equal bilaterally. No accessory muscle use. GASTROINTESTINAL: Abdomen soft, non-tender, nondistended. MUSCULOSKELETAL: No cyanosis, or edema. BACK: Nontender without obvious deformity. No CVA tenderness. Results Labs CBC & Chem 7: 10/24/18 18:09 10/24/18 06:05 Assessment and Plan Plan Mr. Marley is a pleasant 73-year-old male with no significant past medical history who presents to the emergency department due to 1 week long abdominal pain and 1 day duration of coffee-ground emesis. Patient denies any weight loss. Acute abdominal pain Upper GI bleed CT abdomen pelvis shows possible gastric mass. EGD did not identify any mass. EGD shows a duodenal ulcer. -Continue Protonix PO. Avoid NSAIDs. Hemoglobin 13.0 Follow up with GI in the outpatient setting within 2-3 days. Full code. SCDs. Discharge patient to home Condition on discharge: Improved Regular Diet as tolerated Ad Kasandra activity Rx written: Protonix 40mg BID then Qday. Follow-up with primary care physician within 1-2 weeks, GI within 2 weeks. Progress Note: Quality VTE Deep Vein Thrombosis/Pulmonary Embolism Present on Admission: No
== END 2018-10-25 14:30 | disposition home or self-care (01) ==
LOC: PHED 17:54 → PHEDA 17:54 → PHEDH 10-24 02:05 → PH3 10-24 12:05
PROVIDERS: ADMIT Hospitalist; ATTEND Hospitalist
PROC: PANENDO (2018-10-24 17:15)
DX: Z83.3 Family history of diabetes mellitus; K26.9 Duodenal ulcer, unspecified as acute or chronic, without hemorrhage or perforation; R94.31 Abnormal electrocardiogram [ECG] [EKG]; K80.50 Calculus of bile duct without cholangitis or cholecystitis without obstruction; K29.71 Gastritis, unspecified, with bleeding; Z80.3 Family history of malignant neoplasm of breast
CPT/HCPCS: 71010; 71045; 74177; 80053; 81001; 82948; 82962; 83690; 83735; 85014; 85018; 85025; 85610; 85730; 86850; 86900; 86901; 88305; 88312; 90761; 90774; 90775; 93005; 96361; 96374; 96375; 96376; 99285; C8952; C9113; G0378; J2405; J2704; J7030; Q9967